=== PATIENT | female | born 1940 | race Caucasian/White ===

== ENCOUNTER 2020-05-10 14:40 | Emergency (ER) | payer OTHER ==
[~2020-05-10] VITALS: Ht 152.4 cm; Wt 51.3 kg
[2020-05-10] MEDS ORDERED: ZOCOR20 MG (15:31)
[2020-05-10] MEDS ORDERED: CHILDREN'S ASPI81 MG PO (15:31)
[2020-05-10] MEDS ORDERED: ZOLOFT25 MG PO (15:32)
[2020-05-10] MEDS ORDERED: METFORMIN HCL500 MG (15:32)
[2020-05-10] MEDS ORDERED: ZESTRIL10 M1 (15:32)
== END 2020-05-10 18:20 | disposition home or self-care (01) ==
LOC: ER 14:40
DX: S00.83XA Contusion of other part of head, initial encounter (principal); W18.39XA Other fall on same level, initial encounter; Y93.89 Activity, other specified; Y92.098 Other place in other non-institutional residence as the place of occurrence of the external cause; Y99.8 Other external cause status